=== PATIENT | male | born 1965 | race African-American/Black ===

== ENCOUNTER → 2019-11-19 16:51 | Outpatient (CLI) | payer BC, SELFPAY ==
[2019-11-21 08:42] LABS: Covid-19 Nasal PCR Sendout UK Not Detected
== END ==
PROVIDERS: PCP Family Medicine; Visit Provider Nurse Practitioner Family
DX: Z03.818 Encounter for observation for suspected exposure to other biological agents ruled out (principal)
CPT/HCPCS: U0003

== ENCOUNTER → 2020-02-01 10:36 | Outpatient (CLI) | payer BC, SELFPAY ==
--- NOTE | 2020-02-01 10:42 | XR_ITS ---
PROCEDURE: XR CERVICAL SPINE 5V CLINICAL INDICATION: NECK PAIN Chronic neck pain COMPARISON: No exams were available for comparison FINDINGS: There is reversal of the cervical lordosis which may be due to patient positioning or muscle spasm. Degenerative disc disease is present at C3-C4 C4-C5 and C5-C6. Foraminal narrowing is present on the right at C5-C6. No fracture or dislocation. No lytic or blastic change. Other findings:None. IMPRESSION: Reversal of lordosis which could be due to patient positioning or muscle spasm with degenerative disc disease Dictated by: Gregorio Josue MD 02/01/2020 15:22 Gregorio Josue MD in [place] 02/01/2020 15:22
== END ==
PROVIDERS: PCP Family Medicine; Visit Provider Family Medicine
DX: M54.2 Cervicalgia (principal)
CPT/HCPCS: 72050

== ENCOUNTER 2020-02-02 15:01 | Emergency (ER) | payer BC, SELFPAY ==
[2020-02-02 15:01] VITALS: BP 166/124; BP 190/132; PULSE 130; RESP 18; TEMP 36.6; O2SAT 94; BMI 39.3
--- NOTE | 2020-02-02 15:18 | HMH.EDGENADL ---
ED Disposition Clinical Impression: Hypertensive urgency Headache Qualifiers: Headache type: tension-type Headache chronicity pattern: unspecified pattern Intractability: not intractable Qualified Code(s): G44.209 - Tension-type headache, unspecified, not intractable Disposition: Home, Self-Care Condition on Discharge: Fair Instructions: Essential Hypertension, Hypertension (Alternative Therapy), DI for Headache Additional Instructions: You have been evaluated for significantly elevated blood pressure. You also been evaluated for daily headache. Recommend you follow-up with your primary care physician for further work-up of headache. Also follow-up for recheck of blood pressure. Stop kirill Relafin. Turn to the emergency department if you have any new or worsening symptoms, headache, vision changes, dizziness, chest pain, shortness of breath, any other concerns. Referrals: Reyes Chang MD [Staff Physician] - Time of Disposition: 16:32 - Critical Care Critical Care Time: No Attestation: On 02/02/20, the high probability of a clinically significant, sudden or life threatening deterioration of the following system(s) required my full and direct attention, intervention and personal management. The time I documented below is in addition to time spent performing reported procedures but includes the following listed in this critical care notation. Medical Decision Making - Medical Records Medical records reviewed: Yes: I reviewed the patient's medical records. - Ed Inquiry Pt receiving controlled substance: No Vital Signs: 02/02/20 15:01 02/02/20 15:44 02/02/20 16:14 Temperature 98 F Temperature Source Oral Pulse Rate [Radial] 130 H 85 89 Respiratory Rate 18 Blood Pressure [Left Arm] 190/132 H 185/122 H 185/118 H Blood Pressure [Right Arm] 166/124 H Blood Pressure Mean [Left Arm] 151 143 140 Blood Pressure Mean [Right Arm] 138 Blood Pressure Source [Left Arm] Automatic Cuff Automatic Cuff Blood Pressure Position [Left Arm] Sitting Sitting Sitting Blood Pressure Position [Right Arm] Sitting 02 Sat by Pulse Oximetry 94 L 94 L 94 L Oxygen Delivery Method Room Air Room Air Room Air - Lab Data Lab Results 02/02/20 15:15: WBC 9.8, RBC 5.77, Hgb 16.6, Hct 49.4, MCV 85.6, MCH 28.7, MCHC 33.5, RDW 14.8, Plt Count 380, MPV 7.0 L, Neut % (Auto) 62.5, Lymph % (Auto) 25.8, Lewis % (Auto) 5.8, Eos % (Auto) 5.3, Baso % (Auto) 0.6, Neut # (Auto) 6.2, Lymph # (Auto) 2.5, Lewis # (Auto) 0.6, Eos # (Auto) 0.5 H, Baso # (Auto) 0.1 02/02/20 15:15: Sodium 140, Potassium 4.8, Chloride 106, Carbon Dioxide 25, Anion Gap 13.8, BUN 18, Creatinine 1.10, Estimated Creat Clear 141, Estimated GFR 69, Est GFR ( Amer) 84, Glucose 107 H, Calcium 9.6, Total Bilirubin 0.5, AST 31, ALT 42, Alkaline Phosphatase 71, Total Protein 7.8, Albumin 4.5, Globulin 3.3 H, Albumin/Globulin Ratio 1.4 Result diagrams: 02/02/20 15:15 02/02/20 15:15 Orders (Tests/Meds): ORDERS Category Date Time Status PSA-Screen [Prostate Specific Ag Screen] Stat Lab 02/02/20 16:28 Ordered UA [Urinalysis and Microscopic] Stat Lab 02/02/20 15:09 Ordered Medical Decision Narrative: In summary this is a 54-year-old male presenting to the emergency department with elevated blood pressure. Patient clinically stable on arrival. He is hypertensive with systolic 160, diastolic 120. Also tachycardic. Appears anxious. Will obtain CBC, CMP, EKG. Will assess for endorgan dysfunction like kidney injury or evidence of ACS. Initial laboratory results are reassuring. No acute kidney injury. I recommended noncontrast head CT to assess for any intracranial bleed, given patient's headaches. He states that these headaches are similar to his daily headache. Also recommended CT to look for an intracranial mass, patient deferred. Recommended starting a daily antihypertensive medication. He deferred. Says he does not want to start medication at this
[2020-02-02 15:28] LABS: Basophils # 0.1 K/mm3 (0-0.2); Basophils % 0.6 % (0.1-2.0); Eosinophils # 0.5 K/mm3 (0.0-0.4); Eosinophils % 5.3 % (0.1-12.0); Hematocrit 49.4 % (42.0-52.0); Hemoglobin 16.6 g/dL (14.1-18.0); Lymphocytes # 2.5 K/mm3 (0.7-4.5); Lymphocytes % 25.8 % (10-50); Mean Corpuscular HGB Conc 33.5 g/dL (31.8-35.4); Mean Corpuscular Hemoglobin 28.7 pg (27.0-31.2); Mean Corpuscular Volume 85.6 fl (80-94); Monocytes # 0.6 K/mm3 (0.1-1.0); Monocytes % 5.8 % (1.7-9.3); Neutrophils # 6.2 K/mm3 (1.8-7.8); Neutrophils % 62.5 % (37.0-80.0); Platelet Count 380 K/mm3 (142-424); Red Blood Count 5.77 M/mm3 (4.60-6.20); Red Cell Distribution Width 14.8 % (11.5-17.5); White Blood Count 9.8 K/mm3 (4.8-10.8)
[2020-02-02 15:31] LABS: Alanine Aminotransferase 42 U/L (12-78); Albumin Level 4.5 g/dl (3.5-5.0); Albumin/Globulin Ratio 1.4 (1.1-1.8); Alkaline Phosphatase 71 U/L (38-126); Aspartate Amino Transferase 31 U/L (17-59); Bilirubin,Total 0.5 mg/dl (0.2-1.3); Blood Urea Nitrogen 18 mg/dl (9-20); Calcium 9.6 mg/dl (8.4-10.2); Carbon Dioxide 25 mmol/L (22.0-30.0); Chloride 106 mmol/L (98-107); Creatinine Clearance Estimated 141 mL/min (50-200); Estimated Glomerular Filt Rate 69 ml/min (>60); GFR (African American) 84 ML/MIN (>60); Globulin 3.3 g/dL (1.3-3.2); Glucose 107 mg/dl (74-100); Sodium 140 mmol/L (136-145); Total Protein,Serum 7.8 g/dl (6.3-8.2)
[2020-02-02 15:44] VITALS: BP 185/122; PULSE 85; O2SAT 94
--- NOTE | 2020-02-02 15:56 | PC.NURSE ---
Pt laying in bed resting at this time.
[2020-02-02 16:04] LABS: Anion Gap 13.8 mEq/L (5-15); Potassium 4.8 mmoL/L (3.5-5.1)
[2020-02-02 16:14] VITALS: BP 185/118; PULSE 89; O2SAT 94
[2020-02-02 16:34] VITALS: BP 196/124; PULSE 84; RESP 15; TEMP 36.8; O2SAT 94
[2020-02-02 16:55] LABS: Microscopic, Urine URINE MICROSCOPIC (MICROSCOPIC)
[2020-02-02 17:01] LABS: Appearance,Urine CLEAR (Clear); Bilirubin,Urine Negative (Negative); Blood, Urine 2+ (Negative); Color,Urine YELLOW (Yellow); Glucose,Urine (UA) Negative (Negative); Ketones,Urine Negative (Negative); Leukocyte Esterase,Urine Negative (Negative); Nitrate,Urine Negative (Negative); Protein,Urine TRACE (Negative); Specific Gravity, Urine >= 1.030 (1.005-1.030); Urobilinogen,Urine 0.2 EU/dl (0.2)
[2020-02-02 17:13] LABS: Mucus,Urine 1+ /lpf
[2020-02-02 19:37] LABS: Prostate Specific Ag Screen 3.5 ng/ml (0.0-4.0)
== END 2020-02-02 16:40 | disposition home or self-care (01) ==
PROVIDERS: Emergency Provider Emergency Medicine
DX: I16.0 Hypertensive urgency (principal); G44.209 Tension-type headache, unspecified, not intractable; F41.9 Anxiety disorder, unspecified; Z12.5 Encounter for screening for malignant neoplasm of prostate
CPT/HCPCS: 80053; 81001; 85025; 99282; G0103

== ENCOUNTER 2022-03-10 08:52 | Emergency (ER) | payer BC, SELFPAY ==
[2022-03-10 09:00] VITALS: BP 148/115; PULSE 120; RESP 22; TEMP 37.5; O2SAT 94; BMI 40.5
--- NOTE | 2022-03-10 09:08 | EXP.UTC ---
Discharge Plan Disposition Patient Disposition: Home, Self-Care Condition: Good Prescriptions Prescriptions: New benzonatate [benzonatate] 100 mg capsule 100 mg PO TIDP PRN (Reason: Cough) Qty: 30 0RF methylprednisolone 4 mg Tablets,Dose Pack 4 mg PO DIRECTED Qty: 21 0RF amoxicillin [amoxicillin] 875 mg tablet 875 mg PO Q12H Qty: 20 0RF No Action phentermine 37.5 mg tablet 37.5 mg PO Label Comments: TAKE 1 TABLET BY MOUTH ONCE DAILY nabumetone 1,000 MG tablet 1,000 mg PO BID hydrochlorothiazide 25 mg tablet 25 mg PO DAILY Label Comments: TAKE 1 TABLET BY MOUTH ONCE DAILY Referrals Follow up/Referrals: Provider,Referral, MD [Primary Care Provider] - See instructions Activity Restrictions/Add. Instructions Additional Instructions/Restrictions: Drink plenty of fluids. Take tylenol or ibuprofen for pain or fever. Take the medications as directed. Follow up with your regular doctor. GO TO THE ER FOR ANY WORSENING SYMPTOMS Clinical Impressions Clinical Impression: Acute viral syndrome, Sinusitis Instructions Patient Instructions: DI for Sinusitis, DI for Viral Syndrome Discharge ED Provider: Silvio Patel [facility] General Stated complaint: Congestion Time Seen by Provider: 03/10/22 09:07 History of Present Illness Provider Complaint: He states that for the past 3 days he has had sinus congestion, chest congestion, cough, and a sore throat. Related Data Home Medications Medication Instructions Recorded Confirmed nabumetone 1,000 mg tablet 1,000 mg PO BID PAIN 02/02/20 02/02/20 phentermine 37.5 mg tablet 37.5 mg PO 02/02/20 02/02/20 hydrochlorothiazide 25 mg tablet 25 mg PO DAILY Hypertension 03/10/22 03/10/22 Previous Rx's Medication Instructions Recorded amoxicillin 875 mg tablet 875 mg PO Q12H #20 tabs 03/10/22 benzonatate 100 mg capsule 100 mg PO TIDP PRN Cough #30 caps 03/10/22 methylprednisolone 4 mg tablets in 4 mg PO DIRECTED #21 tabs 03/10/22 a dose pack Allergies Allergy/AdvReac Type Severity Reaction Status Date / Time No Known Allergies Allergy Verified 02/02/20 14:26 [facility] Disclaimer: The information contained in this section may have been updated after the patient was seen, as this information can be updated by other users. Medical History Asthma Hypertension Social History Smoking Status: Never smoker alcohol intake: current substance use type: denies use current occupational status: other Travel in the last 8 weeks: Inside the [place] ROS Obtained: Yes All systems reviewed & no additional complaints except as documented Constitutional Constitutional: Reports poor appetite Eyes Eyes: Reports system reviewed and no additional complaints, except as documented ENT Ears, Nose, Mouth, and Throat: Reports as per HPI Cardiovascular Cardiovascular: Reports system reviewed and no additional complaints, except as documented and Denies chest pain Respiratory Respiratory: Denies shortness of breath, Denies chest congestion, Reports cough, Denies stridor and Denies wheezing Gastrointestinal Gastrointestingal: Reports system reviewed and no additional complaints, except as documented; Denies abdominal pain, diarrhea or vomiting Musculoskeletal Musculoskeletal: Reports system reviewed and no additional complaints, except as documented and Denies arthralgias Integumentary/Breasts Skin/Breast: Reports system reviewed and no additional complaints, except as documented and Denies rash Neurologic Neurologic: Denies paresthesias Allergic/Immunologic Allergic/Immunologic: Denies wheezing Physical Exam General General appearance: alert and in no apparent distress Eye Eye exam: Present normal appearance, PERRL and EOMI ENT ENT exam: Present mucous membranes moist and normal external ear ex
[2022-03-10 09:18] VITALS: BP 148/115; PULSE 120; RESP 22; TEMP 37.5; O2SAT 94
[2022-03-10 09:18] LABS: UTC Influenza A Antigen Negative (Negative)
[2022-03-10 09:19] LABS: UTC Influenza B Antigen Negative (Negative)
[2022-03-10 09:59] LABS: Adenovirus,PCR Not Detected (NotDetected); Bordetella Pertussis Not Detected (NotDetected); Chlamydophila Pneumoniae, PCR Not Detected (NotDetected); Coronavirus 229E Not Detected (NotDetected); Coronavirus NL63 Not Detected (NotDetected); Coronavirus OC43 Not Detected (NotDetected); Coronovirus HKU1,PCR Not Detected (NotDetected); Human Metapneumovirus Not Detected (NotDetected); Influenza A, PCR Not Detected (NotDetected); Influenza AH1, 2009 Not Detected (NotDetected); Influenza AH1, PCR Not Detected (NotDetected); Influenza AH3,PCR Not Detected (NotDetected); Influenza B, PCR Not Detected (NotDetected); Mycoplasma Pneumoniae, PCR Not Detected (NotDetected); Parainfluenza 1, PCR Not Detected (NotDetected); Parainfluenza 2, PCR Not Detected (NotDetected); Parainfluenza 3, PCR Not Detected (NotDetected); Parainfluenza 4, PCR Not Detected (NotDetected); Respiratory Syncytial Virus Not Detected (NotDetected); Rhinovirus/Enterovirus Not Detected (NotDetected)
[2022-03-10 11:16] LABS: Coronavirus 19, PCR Detected (NotDetected)
== END 2022-03-10 09:55 | disposition home or self-care (01) ==
PROVIDERS: Emergency Provider Nurse Practitioner Family
DX: J01.90 Acute sinusitis, unspecified (principal); B97.29 Other coronavirus as the cause of diseases classified elsewhere
CPT/HCPCS: 87581; 87632; 87798; 87804; 99212; 99213; C9803; G0463; U0003; U0005

== ENCOUNTER 2022-08-24 14:35 | Emergency (ER) | payer BC, SELFPAY ==
[2022-08-24 14:36] VITALS: BP 150/93; PULSE 87; RESP 18; TEMP 37; O2SAT 98; BMI 42.0
--- NOTE | 2022-08-24 14:55 | EXP.UTC ---
Discharge Plan Disposition Patient Disposition: Home, Self-Care Condition: Good Prescriptions Prescriptions: New methylprednisolone 4 mg Tablets,Dose Pack 4 mg PO DIRECTED Qty: 21 0RF amoxicillin-pot clavulanate 875-125 mg Tablet 1 tab PO Q12H Qty: 20 0RF ciprofloxacin-dexamethasone 0.3-0.1 % Drops,Suspension 2 drp OTIC (EAR) BID 7 Days Qty: 1 0RF No Action phentermine 37.5 mg tablet 37.5 mg PO Label Comments: TAKE 1 TABLET BY MOUTH ONCE DAILY nabumetone 1,000 MG tablet 1,000 mg PO BID hydrochlorothiazide 25 mg tablet 25 mg PO DAILY Label Comments: TAKE 1 TABLET BY MOUTH ONCE DAILY benzonatate [benzonatate] 100 mg capsule 100 mg PO TIDP PRN (Reason: Cough) Qty: 30 0RF methylprednisolone 4 mg Tablets,Dose Pack 4 mg PO DIRECTED Qty: 21 0RF amoxicillin [amoxicillin] 875 mg tablet 875 mg PO Q12H Qty: 20 0RF Referrals Follow up/Referrals: Isidro Walls [Primary Care Provider] - See instructions Activity Restrictions/Add. Instructions Additional Instructions/Restrictions: Take tylenol or ibuprofen for pain or fever. Take the medications as directed. Follow up with your regular doctor. GO TO THE ER FOR ANY WORSENING SYMPTOMS Clinical Impressions Clinical Impression: Otitis media Instructions Patient Instructions: How to Instill Ear Drops, Middle Ear Infection Discharge ED Provider: Silvio Patel [facility] General Stated complaint: ear pain Mode of Arrival: Ambulatory Source of Information: Patient Limitations: No Limitations Time Seen by Provider: 08/24/22 14:55 Description of Symptoms (Recalled from Triage Doc. by RN): Patient reports a clogged up left ear with pain for 2 days. HEENT Symptoms (Recalled from RN notes): Yes Resp Symptoms (Recalled from RN notes): No Skin Symptoms (Recalled from RN notes): No MS Symptoms (Recalled from RN notes): No Functional Status (Recalled from RN notes): wnl History of Present Illness Provider Complaint: He c/o left ear pain and decreased hearing for the past 2 days. Related Data Home Medications Medication Instructions Recorded Confirmed nabumetone 1,000 mg tablet 1,000 mg PO BID PAIN 02/02/20 02/02/20 phentermine 37.5 mg tablet 37.5 mg PO 02/02/20 02/02/20 hydrochlorothiazide 25 mg tablet 25 mg PO DAILY Hypertension 03/10/22 03/10/22 Previous Rx's Medication Instructions Recorded amoxicillin 875 mg tablet 875 mg PO Q12H #20 tabs 03/10/22 benzonatate 100 mg capsule 100 mg PO TIDP PRN Cough #30 caps 03/10/22 methylprednisolone 4 mg tablets in 4 mg PO DIRECTED #21 tabs 03/10/22 a dose pack amoxicillin 875 mg-potassium 1 tab PO Q12H #20 tabs 08/24/22 clavulanate 125 mg tablet ciprofloxacin 0.3 %-dexamethasone 2 drp otic (ear) BID 7 days #1 ea 08/24/22 0.1 % ear drops,suspension methylprednisolone 4 mg tablets in 4 mg PO DIRECTED #21 tabs 08/24/22 a dose pack Allergies Allergy/AdvReac Type Severity Reaction Status Date / Time No Known Allergies Allergy Verified 02/02/20 14:26 Worker's Comp Is this a Worker's Comp case?: No [facility] Disclaimer: The information contained in this section may have been updated after the patient was seen, as this information can be updated by other users. Medical History Asthma Hypertension Social History Smoking Status: Never smoker alcohol intake: current substance use type: denies use current occupational status: other Travel in the last 8 weeks: Inside the [place] ROS Obtained: Yes All systems reviewed & no additional complaints except as documented Constitutional Constitutional: Denies chills, Reports fever(s) and Reports poor appetite Eyes Eyes: Denies eye discharge ENT Ears, Nose, Mouth, and Throat: Denies ear discharge, Reports otalgia, Denies hearing loss, Denies sinus pain a
[2022-08-24 15:17] VITALS: BP 150/93; PULSE 87; RESP 18; TEMP 37; O2SAT 98
== END 2022-08-24 15:18 | disposition home or self-care (01) ==
PROVIDERS: Emergency Provider Nurse Practitioner Family; PCP Internal Medicine
DX: H66.93 Otitis media, unspecified, bilateral (principal); I10 Essential (primary) hypertension; J45.909 Unspecified asthma, uncomplicated
CPT/HCPCS: 99212; 99214; G0463